=== PATIENT | female | born 1995 | race Caucasian/White ===

== ENCOUNTER 2016-04-21 21:56 | Emergency (ER) | payer OTHER ==
[~2016-04-21] VITALS: Ht 165.1 cm; Wt 61.2 kg
[2016-04-21] MEDS ORDERED: BACT800T5 PO (22:19)
[2016-04-21 22:20] VITALS: BP 104/58; PULSE 95; RESP 16; TEMP 99; O2SAT 97
--- NOTE | 2016-04-21 22:29 | PD ---
HPI Chief Complaint: Complaint Time Seen by Provider: 22:21 Travel History International Travel<30 days: No Contact w/Intl Traveler<30days: No History of Present Illness HPI 21 year old female presents to the ED for evaluation of 4 day history of dysuria , increased urinary urgency. Patient states that she was seen at a [facility] care, diagnosed with urinary tract infection and prescribed Bactrim. States she's taken 5 doses of the Bactrim with no improvement of symptoms. She states that today her dysuria is worsened and she feels feverish. No fever measured at home. Denies vaginal discharge, vaginal rash. Denies previous history of urinary tract infection. Patient states that she was never called with the results of her urine culture. She's been treating with Azo as well. She denies chronic health problems, takes no daily medications. NKDA. PFSH Social History Tobacco Use: No Allergies-Medications (Allergen,Severity, Reaction): Coded Allergies: No Known Allergies (Unverified , 04/21/16) Reported Meds & Prescriptions Reported Meds & Active Scripts Active Ibuprofen 600 Mg Tab 600 Mg PO Q8HR PRN Cipro (Ciprofloxacin HCl) 250 Mg Tab 250 Mg PO BID 3 Days Reported Bactrim DS (Sulfamethoxazole-Trimethoprim) 800-160 Mg Tab 1 Tab PO BID Review of Systems Except as stated in HPI: all other systems reviewed are Neg Physical Exam Narrative GENERAL: Well-nourished, well-developed irritable white female in no acute distress. SKIN: Warm and dry. HEAD: Normocephalic. EYES: No scleral icterus. No injection or drainage. NECK: Supple, trachea midline. No JVD or lymphadenopathy. CARDIOVASCULAR: Regular rate and rhythm without murmurs, gallops, or rubs. RESPIRATORY: Breath sounds equal bilaterally. No accessory muscle use. GASTROINTESTINAL: Abdomen soft, nondistended. No palpable masses. Positive for suprapubic tenderness. No flank pain. MUSCULOSKELETAL: No cyanosis, or edema. BACK: Nontender without obvious deformity. No CVA tenderness. Data Data Last Documented VS Vital Signs Date Time Temp Pulse Resp B/P Pulse Ox O2 Delivery O2 Flow Rate FiO2 04/21/16 22:20 99.0 95 16 104/58 97 Orders Urinalysis - C+S If Indicated (04/21/16 22:14) ^ Insert Iv (04/21/16 22:30) Ceftriaxone Inj (Rocephin Inj) (04/21/16 22:30) Acetaminophen (Tylenol) (04/21/16 22:45) Urine Culture (04/21/16 22:20) Labs Laboratory Tests Test 04/21/16 22:20 Urine Collection Type CLEAN CATCH Urine Color ORANGE Urine Turbidity CLOUDY Urine pH 7.0 Urine Specific [place] 1.020 Urine Protein 300 OR GREATER mg/dL Urine Glucose (UA) 250 mg/dL Urine Ketones TRACE mg/dL Urine Occult Blood LARGE Urine Nitrite POS Urine Bilirubin NEG Urine Leukocyte Esterase LARGE Urine WBC INNUM /hpf Urine WBC Clumps MOD Urine Squamous Epithelial 0-5 /hpf Cells Urine Transitional Epithelial 0-2 /hpf Cells Urine Bacteria FEW /hpf Microscopic Urinalysis Comment CULTURE INDICATED MDM Medical Decision Making Medical Screen Exam Complete: Yes Emergency Medical Condition: Yes Differential Diagnosis Cystitis versus nephritis versus failed outpatient treatment versus other Narrative Course 21 year old female presents to the ED for evaluation of 4 day history of dysuria , increased urinary urgency. Patient states that she was seen at a [facility], diagnosed with urinary tract infection and prescribed Bactrim. States she's taken 5 doses of the Bactrim with no improvement of symptoms. She states that today her dysuria is worsened and she feels feverish. No fever measured at home. Denies vaginal discharge, vaginal rash, previous history of urinary tract infection. Patient states that she was never called with the results of her urine culture. Vitals reviewed. Physical exam reveals an irritable white female in no acute distress. Abdomen soft, positive for suprapubic tenderness. No flank pain, no CVA tenderness. Urine orange, cloudy, 300 protein, trace ketones, large occult blood, positive nitrate, large leukocyte esterase, innumerable WBCs, moderate WBC clumps, few bacteria. Culture pending. Patient was administered a gram of Rocephin IV and 650 mg Tylenol. She is prescribed Cipro 250 twice a day 3 days and 800 mg ibuprofen. She is instructed take medications as prescribed, call the [facility] clinic for urine culture results , follow up with the primary care provider. She indicated understanding of the instructions and is amenable to the plan of care. The patient is stable and discharged home. Diagnosis Primary Impression: Urinary tract infection Qualified Code: N30.00 - Acute cystitis without hematuria Referrals: Primary Care Physician Patient Instructions: General Instructions, Urinary Tract Infection in Women ( ED) Additional Instructions: Rest, hydrate Discontinue taking BACTRIM. Call the Urgent Care tomorrow to obtain results of urine culture. Take all CIPRO as prescribed, even if the symptoms resolve. Follow-up with the primary care provider this week. Return to the ED for worsening of symptoms or any urgent or emergent medical condition. Med/Other Pt SpecificInfo: Prescription(s) given Scripts Ibuprofen 600 Mg [id number] Mg PO Q8HR PRN (PAIN) #12 TAB Ref 0 Prov:Maria Del Carmen Guallpa MD 04/21/16 Ciprofloxacin (Cipro)250 Mg [id number] Mg PO BID 3 Days Ref 0 Prov:Maria Del Carmen Guallpa MD 04/21/16 Disposition: 01 DISCHARGE HOME Condition: Stable Desirae Mac Apr 21, 2016 22:29
[2016-04-21] MEDS ORDERED: cefTRIAXone INJ 1,000 MG in SODIUM CHLORIDE 0.9% INJ 100 ML IV ONE (22:30)
[2016-04-21 22:34] LABS: BLOOD, URINE LARGE (NEG); GLUCOSE,URINE 250 mg/dL (NEG); KETONE, URINE TRACE mg/dL (NEG)
[2016-04-21] MEDS ORDERED: CIPR250T52 PO (22:40)
[2016-04-21] MEDS ORDERED: IBUP-232 PO (22:40)
[2016-04-21 22:45] LABS: NITRITE,URINE POS (NEG)
[2016-04-21] MEDS ORDERED: ACETAMINOPHEN 325 MG TAB PO ONE (22:45)
[2016-04-21 23:24] LABS: METHOD OF COLLECTION CLEAN CATCH; URINE COLOR ORANGE (YELLW/STRAW)
[2016-04-21 23:25] LABS: WBC, URINE INNUM /hpf (0-5)
[2016-04-21 23:26] LABS: BACTERIA, URINE FEW /hpf; COMMENT (UR) CULTURE INDICATED; CULTURE IF INDICATED CULTURE INDICATED; SQUAMOUS EPITHELIAL CELL URINE 0-5 /hpf (0-5); TRANSITIONAL EPI CELLS, URINE 0-2 /hpf
== END 2016-04-22 00:09 | disposition home or self-care (01) ==
LOC: PHEFT 21:56
DX: N39.0 Urinary tract infection, site not specified (principal); B96.29 Other Escherichia coli [E. coli] as the cause of diseases classified elsewhere
CPT/HCPCS: 81001; 87077; 87086; 87186; 96365; 99283; J0696